=== PATIENT | female | born 1995 | race Asian ===

== ENCOUNTER → 2018-04-02 | Outpatient (CLI) | payer MEDICAID ==
--- NOTE | 2018-04-02 17:18 | Diagnostic Imaging Report ---
INDICATION: survey. TECHNIQUE: Multiple real-time grayscale images were obtained over the gravid uterus. COMPARISON: None. FINDINGS: There is a single live fetus in a breech presentation. heart rate was recorded at 136 beats per minute. Placenta is fundal. Amniotic fluid volume appears normal. Cervical length is 3.7 cm. survey does show kidneys, bladder and stomach to be unremarkable. The brain is unremarkable. There is a four-chamber heart. There is a three-vessel cord with normal cord insertion. spine was not well evaluated due to position. Biometrical measurements are as follows: Biparietal 5.4 cm, age 22 weeks 3 days. Head circumference 19.1 cm, age 21 weeks 3 days. Abdominal circumference 16.46 cm, age 21 weeks 4 days. Femur length 3.4 cm, age 20 weeks 5 days. Sonographic estimate age: 21 weeks 4 days. Sonographic estimated date of delivery: 08/09/2018. Estimated Weight: 407 gm (+/- 59 gm). LMP percentile: 79%. heart rate: 136 beats per minute. number: 1 of 1. IMPRESSION: 1. Single live IUP 21 weeks 4 days gestational age. Estimated date of confinement sonographically is 08/09/2018. 2. survey is unremarkable although spine was not well visualized due to position and followup ultrasound could be performed. Dictated by: Dictated on workstation # [id number]
== END ==
LOC: RAD 16:12
PROVIDERS: ATTEND Obstetrics & Gynecology
DX: Z36.89 Encounter for other specified antenatal screening (principal); Z3A.21 21 weeks gestation of pregnancy
CPT/HCPCS: 76805

== ENCOUNTER 2021-01-20 15:12 | Day surgery (SDC) | payer BC, MEDICAID ==
[~2021-01-20] VITALS: Ht 167 cm; Wt 72.0 kg
[2021-01-20] VITALS (8 sets, daily range): BP systolic 111–126; BP diastolic 68–82
[2021-01-20] MEDS ORDERED: fentaNYL INJ 100 MCG/2 ML AMP IVP ONE (15:30)
[2021-01-20 15:57] LABS: BASOPHILS % (AUTO) 0 % (0-10); EOSINOPHILS % (AUTO) 0 % (0-10); HEMATOCRIT 33 % (35-52); HEMOGLOBIN 10.7 g/dL (11.5-16.0); LYMPHOCYTES # (AUTO) 2.7 10^3/uL (1.0-4.0); LYMPHOCYTES % (AUTO) 22 % (12-44); MEAN CORPUSCULAR HEMOGLOBIN 29 pg (25-34); MEAN CORPUSCULAR HGB CONC 33 g/dL (32-36); MEAN CORPUSCULAR VOLUME 87 fL (80-99); MONOCYTES # (AUTO) 0.5 10^3/uL (0.0-1.0); MONOCYTES % (AUTO) 4 % (0-12); NEUTROPHILS % (AUTO) 73 % (42-75); PLATELET COUNT 236 10^3/uL (130-400); WHITE BLOOD COUNT 12.3 10^3/uL (4.3-11.0)
--- NOTE | 2021-01-20 16:11 | ED GU-Female ---
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 She reports that she had a miscarriage about 1 month ago when she was at 14 to 15 weeks gestation at that time. She does not remember passing any tissue. She was out of town when that happened. She has not yet followed up with Dr. Taveras. She has not had any troubles until today when she felt the urge to urinate. She went to the bathroom and passed a large amount of clot vaginally. She has subsequently developed quite a bit of lower abdominal cramping. No fevers or chills. Ab1. Timing/Duration: constant Severity/Quality: cramping Location: suprapubic Radiation: none Activities at Onset: none Prior Genitourinary Problems: none Associated Symptoms: dysuria (JASWANT MACIAS APRN) Allergies and Home Medications Allergies Coded Allergies: No Known Drug Allergies (Unverified , 01/20/21) Patient Home Medication List Home Medication List Reviewed: Yes (JASWANT MACIAS APRN) Review of Systems Review of Systems Constitutional: see HPI EENTM: see HPI Respiratory: no symptoms reported Cardiovascular: no symptoms reported Genitourinary: no symptoms reported Musculoskeletal: no symptoms reported Skin: no symptoms reported Psychiatric/Neurological: No Symptoms Reported Endocrine: No Symptoms Reported (JASWANT MACIAS APRN) Past Aanzbhi-Rreqkr-Yadyrz Hx Patient Social History Alcohol Use: Denies Use Smoking Status: Light Tobacco Smoker (JASWANT MACIAS APRN) Physical Exam Vital Signs Vital Signs - First Documented 01/20/21 01/20/21 15:20 17:50 Temp 36.4 Pulse 87 Resp 16 B/P (MAP) 103/82 (89) Pulse Ox 100 O2 Delivery Room Air (CASEY GOLD MD) Vital Signs Capillary Refill : (JASWANT MACIAS APRN) Height, Weight, BMI Height: '" Weight: lbs. oz. kg; BMI Method: General Appearance: WD/WN, no apparent distress, other (Alert. Oriented. Pleasant. Hemodynamically stable with a blood pressure of 103/82. Heart rate in the 70s.) Neck: non-tender, full range of motion Gastrointestinal: normal bowel sounds, non tender, soft Genital/Rectal: other (Pelvic exam done with Brianna at the bedside. There is quite a bit of clotted material within the vaginal vault.) Neurologic/Psychiatric: alert, normal mood/affect, oriented x 3 Skin: normal color, warm/dry (JASWANT MACIAS APRN) Progress/Results/Core Measures Suspected Sepsis SIRS Temperature: Pulse: Respiratory Rate: Laboratory Tests 01/20/21 15:43: White Blood Count 12.3H Blood Pressure / Mean: Laboratory Tests 01/20/21 15:43: Creatinine 0.71, Platelet Count 236 (JASWANT MACIAS APRN) Results/Orders Lab Results Laboratory Tests Test 01/20/21 15:43 Range/Units White Blood Count 12.3 H 4.3-11.0 10^3/uL Red Blood Count 3.76 L 3.80-5.11 10^6/uL Hemoglobin 10.7 L 11.5-16.0 g/dL Hematocrit 33 L 35-52 % Mean Corpuscular Volume 87 80-99 fL Mean Corpuscular Hemoglobin 29 25-34 pg Mean Corpuscular Hemoglobin Concent 33 32-36 g/dL Red Cell Distribution Width 12.2 10.0-14.5 % Platelet Count 236 130-400 10^3/uL Mean Platelet Volume 10.0 9.0-12.2 fL Immature Granulocyte % (Auto) 0 % Neutrophils (%) (Auto) 73 42-75 % Lymphocytes (%) (Auto) 22 12-44 % Monocytes (%) (Auto) 4 0-12 % Eosinophils (%) (Auto) 0 0-10 % Basophils (%) (Auto) 0 0-10 % Neutrophils # (Auto) 9.0 H 1.8-7.8 10^3/uL Lymphocytes # (Auto) 2.7 1.0-4.0 10^3/uL Monocytes # (Auto) 0.5 0.0-1.0 10^3/uL Eosinophils # (Auto) 0.0 0.0-0.3 10^3/uL Basophils # (Auto) 0.0 0.0-0.1 10^3/uL Immature Granulocyte # (Auto) 0.0 0.0-0.1 10^3/uL Sodium Level 138 135-145 MMOL/L Potassium Level 3.6 3.6-5.0 MMOL/L Chloride Level 106 98-107 MMOL/L Carbon Dioxide Level 26 21-32 MMOL/L Anion Gap 6 5-14 MMOL/L Blood Urea Nitrogen 12 7-18 MG/DL Creatinine 0.71 0.60-1.30 MG/DL Estimat Glomerular Filtration Rate > 60 BUN/Creatinine Ratio 17 Glucose Level 96 70-105 MG/DL Calcium Level 8.7 8.5-10.1 MG/DL Human Chorionic Gonadotropin, Quant 13 H <5 MIU/ML Serum Test, Qualitative POSITIVE NEGATIVE (CASEY GOLD MD) Medications Given in ED Current Medications Medications Dose Ordered Sig/Alexus Route Start Time Stop Time Status Last Admin Dose Admin Fentanyl Citrate 50 mcg ONCE ONCE IVP 01/20/21 15:30 01/20/21 15:31 DC 01/20/21 15:50 50 MCG (CASEY GOLD MD) Vital Signs/I&O 01/20/21 01/20/21 15:20 17:50 Temp 36.4 36.4 Pulse 87 77 Resp 16 16 B/P (MAP) 103/82 (89) 118/74 Pulse Ox 100 O2 Delivery Room Air Room Air (CASEY GOLD MD) Vital Signs/I&O Capillary Refill : (JASWANT MACIAS APRN) Departure Impression Primary Impression: Retained products of conception after miscarriage Disposition: ADMITTED INPATIENT Condition: Stable Departure-Patient Inst. Referrals: TAWANA TAVERAS DO (PCP/Family) Primary Care Physician JASWANT MACIAS APRN January 20, 2021 16:11 CASEY GOLD MD January 20, 2021 18:59
[2021-01-20 16:14] LABS: CHLORIDE 106 MMOL/L (98-107); POTASSIUM 3.6 MMOL/L (3.6-5.0); SODIUM 138 MMOL/L (135-145)
[2021-01-20 16:16] LABS: CALCIUM 8.7 MG/DL (8.5-10.1); GLUCOSE 96 MG/DL (70-105)
[2021-01-20 16:18] LABS: CARBON DIOXIDE 26 MMOL/L (21-32)
[2021-01-20 16:20] LABS: CREATININE SERUM 0.71 MG/DL (0.60-1.30); GFR ESTIMATED > 60
[2021-01-20 16:21] LABS: BUN/CREATININE RATIO 17
--- NOTE | 2021-01-20 17:17 | Diagnostic Imaging Report ---
PROCEDURE: Pelvic complete, transabdominal and transvaginal sonogram. Limited pelvic Doppler. TECHNIQUE: Multiple real-time grayscale images were obtained of the pelvis in various projections, transabdominally and transvaginally. Limited pelvic duplex images were obtained. HISTORY: Miscarriage one month previously, cramping and vaginal bleeding. COMPARISON: None available. FINDINGS: The uterus is enlarged measuring 7.4 x 5.5 x 5.3 cm. It is difficult to evaluate the endometrial canal as it is distended with fluid and debris with the debris within the canal measuring up to 2.3 cm. There is likely blood flow within the debris, but the tissue planes are distorted. The right ovary measures 3.6 x 2.3 x 2.5 cm and the left ovary measures 3.0 x 1.4 x 1.1 cm. There is normal arterial inflow to both ovaries. Small amount of free pelvic fluid is present. IMPRESSION: Endometrial canal is distorted as it is distended by fluid and debris, some of which appears to contain internal blood flow concerning for retained products of conception. The overall thickness is 2.3 cm. Dictated by: Dictated on workstation # [id number]
[2021-01-20] MEDS ORDERED: NS IV 1000 ML 1,000 ML IV SCH (18:15)
[2021-01-20] MEDS ORDERED: ONDANSETRON 4 MG/2 ML (SDV) Z0FRAN IVP PRN ×2 (18:15→19:15)
[2021-01-20] MEDS ORDERED: fentaNYL INJ 100 MCG/2 ML AMP IVP PRN (18:15)
[2021-01-20] MEDS ORDERED: NS IV 1000 ML 1,000 ML ONE (18:16)
--- NOTE | 2021-01-20 19:04 | History & Physical-Surgical ---
HPO-Surgical History of Present Illness Chief Complaint: PT BROUGHT IN VIA [facility] BLS. PT WAS AT HER PLACE OF EMPLOYMENT WHEN SHE WENT TO THE BATHROOM TO URINATE. PT THEN NOTICED A LOT OF BLEEDING IN THE TOILET. PT DOES REPORT HAVING A MISCARRIAGE ABOUT A MONTH AGO. Diagnosis/Surgical Indication: Incomplete Ab Procedure: Suction D and C Date of Surgery: January 20, 2021 Allergies and Home Medications Allergies Coded Allergies: No Known Drug Allergies (Unverified , 01/20/21) Patient Home Medication List Home Medication List Reviewed: Yes Past Aslpxse-Cpmvaz-Nwrhaq Hx Patient Social History Marrital Status: single Number of Children: 1 Number of living children: 1 Employed/Student: employed Smoking Status: Light Tobacco Smoker Surgeries No Respiratory No Currently Using CPAP: No Currently Using BIPAP: No Cardiovascular No Neurological No Reproductive System : Yes Hx : 2 Hx Para: 1 Hx Total # of Abortions (Spona: 1 Hx Reproductive Disorders: No Sexually Transmitted Disease: No HIV/AIDS: No Female Reproductive Disorders: Denies Genitourinary No Gastrointestinal No Musculoskeletal No Endocrine History of Endocrine Disorders: No Are Your Blood Sugars Over 250: No HEENT History of HEENT Disorders: No Cancer No Did You Recieve Any Treatments: No Psychosocial History of Psychiatric Problem: No Integumentary History of Skin or Integumenta: No Blood Transfusions History of Blood Disorders: No Adverse Reaction to a Blood Tr: No Reviewed Nursing Assessment Reviewed/Agree w Nursing PMH: No Family Medical History Significant Family History: No Pertinent Family Hx Exam Vital Signs Vital Signs 01/20/21 17:50 Temp 36.4 Pulse 77 Resp 16 B/P (MAP) 118/74 Pulse Ox 100 O2 Delivery Room Air Capillary Refill : Less Than 3 Seconds Labs Laboratory Tests Test 01/20/21 15:43 Range/Units White Blood Count 12.3 H 4.3-11.0 10^3/uL Red Blood Count 3.76 L 3.80-5.11 10^6/uL Hemoglobin 10.7 L 11.5-16.0 g/dL Hematocrit 33 L 35-52 % Mean Corpuscular Volume 87 80-99 fL Mean Corpuscular Hemoglobin 29 25-34 pg Mean Corpuscular Hemoglobin Concent 33 32-36 g/dL Red Cell Distribution Width 12.2 10.0-14.5 % Platelet Count 236 130-400 10^3/uL Mean Platelet Volume 10.0 9.0-12.2 fL Immature Granulocyte % (Auto) 0 % Neutrophils (%) (Auto) 73 42-75 % Lymphocytes (%) (Auto) 22 12-44 % Monocytes (%) (Auto) 4 0-12 % Eosinophils (%) (Auto) 0 0-10 % Basophils (%) (Auto) 0 0-10 % Neutrophils # (Auto) 9.0 H 1.8-7.8 10^3/uL Lymphocytes # (Auto) 2.7 1.0-4.0 10^3/uL Monocytes # (Auto) 0.5 0.0-1.0 10^3/uL Eosinophils # (Auto) 0.0 0.0-0.3 10^3/uL Basophils # (Auto) 0.0 0.0-0.1 10^3/uL Immature Granulocyte # (Auto) 0.0 0.0-0.1 10^3/uL Sodium Level 138 135-145 MMOL/L Potassium Level 3.6 3.6-5.0 MMOL/L Chloride Level 106 98-107 MMOL/L Carbon Dioxide Level 26 21-32 MMOL/L Anion Gap 6 5-14 MMOL/L Blood Urea Nitrogen 12 7-18 MG/DL Creatinine 0.71 0.60-1.30 MG/DL Estimat Glomerular Filtration Rate > 60 BUN/Creatinine Ratio 17 Glucose Level 96 70-105 MG/DL Calcium Level 8.7 8.5-10.1 MG/DL Human Chorionic Gonadotropin, Quant 13 H <5 MIU/ML Serum Test, Qualitative POSITIVE NEGATIVE US consistent with retained products of conception General Appearance: Alert, Oriented X3 HEENT: Atraumatic Respiratory: Clear to Auscultation Cardiovascular: Regular Rate Abdominal: Normal Bowel Sounds Extremities: No Clubbing Psych/Mental Status: Mental Status NL Assessment/Plan Assessment and Plan 25 yo Incomplete Vaginal bleeding Plan: Suction D and C. Admission Diagnosis 25 yo Incomplete Vaginal bleeding Admission Status: TAWANA South DO January 20, 2021 19:04
[2021-01-20] MEDS ORDERED: ACHD5005 PO (19:06)
[2021-01-20] MEDS ORDERED: IBUP-1773 PO (19:06)
--- NOTE | 2021-01-20 19:06 | Discharge Inst-Women's Service ---
Discharge Inst-Women's Serv Depart Medication/Instructions New, Converted or Re-Newed RX: RX on Chart Problems Reviewed?: Yes Consults/Follow Up Additional Follow Up: Yes Orders/Referrals Dr. Taveras in 2-3 weeks Activity Activity: Activity as Tolerated Driving Instructions: You May Drive NO SMOKING: NO SMOKING Nothing Inside Vagina: No Douching, No [place], No Tampons Diet Discharge Diet: No Restrictions Symptoms to Report to : Bleeding Excessive, Pain Increased, Fever Over 101 Degrees F, Vaginal Bleeding Increase, Questions/Concerns For Any Problems or Questions: Contact Your Physician TAWANA TAVERAS DO January 20, 2021 19:06
[2021-01-20] MEDS ORDERED: proPOfol 200 MG/20 ML (DIPRIVAN) VIAL IV ONE (19:08)
[2021-01-20] MEDS ORDERED: LIDOCAINE PF 2% 5 ML (XYLOCAINE) VIAL ONE (19:08)
[2021-01-20] MEDS ORDERED: fentaNYL INJ 100 MCG/2 ML AMP ONE (19:08)
[2021-01-20] MEDS ORDERED: MIDAZOLAM 2 MG/2 ML (VERSED) VIAL ONE (19:08)
[2021-01-20] MEDS ORDERED: SEVOFLURANE (ULTANE) 15 ML INHAL SOLN ONE (19:08)
[2021-01-20] MEDS ORDERED: ONDANSETRON 4 MG/2 ML (SDV) Z0FRAN ONE (19:11)
[2021-01-20] MEDS ORDERED: HYDROcodone/APAP 5 MG/325 MG (LORTAB) TAB PO PRN ×2 (19:15)
[2021-01-20] MEDS ORDERED: KETOROLAC 30 MG/ML VIAL IVP ONE (19:15)
[2021-01-20] MEDS ORDERED: D5 LR IV SOLUTION 1,000 ML IV SCH (19:15)
[2021-01-20] MEDS ORDERED: DOXYCYCLINE INJECTION 100 MG in NS (IVPB) 100 ML IV ONE (19:15)
[2021-01-20] MEDS ORDERED: LACTATED RINGERS 1,000 ML IV PRN (19:45)
[2021-01-20] MEDS ORDERED: KETOROLAC 30 MG/ML VIAL ONE (19:54)
[2021-01-20] MEDS ORDERED: HYDROmorphone 2 MG/ML VIAL (DILAUDID) IV ONE (20:15)
--- NOTE | 2021-01-21 00:02 | OPERATIVE REPORT ---
DATE OF SERVICE: PREOPERATIVE DIAGNOSES: A 25-year-old G2, P1 with incomplete and retained products of conception. POSTOPERATIVE DIAGNOSES: A 25-year-old G2, P1 with incomplete and retained products of conception. PROCEDURE: Suction D and C. SURGEON: Tawana Taveras DO ANESTHESIA: LMA general. ESTIMATED BLOOD LOSS: 75 mL. URINE OUTPUT: 50 mL clear at the start of the procedure. FLUIDS: 800 mL lactated Ringer's solution. FINDINGS: A small to moderate amount of products of conception consistent with retained products of incomplete . INDICATIONS FOR PROCEDURE: This patient came in the Emergency Department with heavy vaginal bleeding. She reported started a few days ago and became progressively worse. She miscarried about a month and a half ago and was seen at a facility in [place], who told her that she had passed all the products of conception. Therefore, the patient did not follow up with me here in my office. This evening, her hemodynamic status was stable; however, due to the patient's n.p.o. status, we decided to proceed with a suction D and C. Risks of the procedure were discussed with the patient in detail and after all of her questions were answered, consent was obtained, the patient was taken to the operating room. OPERATIVE REPORT IN DETAIL: Once in the operating room, anesthesia was found to be adequate. She was placed in dorsal lithotomy position, prepped and draped in normal sterile fashion. Timeout was performed. Bladder was drained using straight catheterization. A weighted speculum inserted to the patient's vagina. Right angle retractor was used to visualize the cervix. It was grasped at 12 o'clock position using a long Allis clamp. I then gently sound the uterine cavity and was found to be 8 cm. I selected an 8 cm [place] suction curette and gently dilated the cervix for the placement of this using Hanks dilators. I then placed the suction curette into the endometrial cavity. I applied [place] suction to a maximum suction of 70 mmHg, which point I methodically cleared the endometrial cavity using suction of the products of conception. A small to moderate amount of products of conception are retrieved in doing so. After which there was little to scant bleeding noted. A gentle curettage with a sharp endometrial curette was performed, after which there was no active bleeding noted. I removed all the instruments from the patient's vagina. The patient tolerated the procedure well and was taken to recovery area in stable condition. Lap and sponge count was correct at the end of the procedure. Instrument counts correct as well. Job ID: [id number] DocumentID: [id number] Dictated Date: 01/20/2021 20:14:03 Agricultural Technical Officer Date: 01/21/2021 00:01:03 Dictated By: TAWANA TAVERAS DO
--- NOTE | 2021-01-21 09:54 | Anesthesia-General Post-Op ---
General Patient Condition Mental Status/LOC: Same as Preop Cardiovascular: Satisfactory Nausea/Vomiting: Absent Respiratory: Satisfactory Pain: Controlled Complications: Absent Post Op Complications Complications None Follow Up Care/Instructions Patient Instructions None needed. Anesthesia/Patient Condition Patient Condition Patient is doing well, no complaints, stable vital signs, no apparent adverse anesthesia problems. No complications reported per nursing. D/C home per [facility] Criteria: Yes ONDINA PRAJAPATI CRNA January 21, 2021 09:54
== END 2021-01-20 22:15 | disposition home or self-care (01) ==
LOC: EDUNIT# 15:12 → ER 15:17 → UNDOADMOB 17:23 → WSo 17:23 → WS 17:23 → WSo 22:15 → UNDODISOB 22:15
PROVIDERS: ATTEND Obstetrics & Gynecology
DX: O03.4 Incomplete spontaneous abortion without complication (principal); F17.200 Nicotine dependence, unspecified, uncomplicated; Z98.890 Other specified postprocedural states
CPT/HCPCS: 36415; 76830; 76856; 80048; 84702; 84703; 85025; 86850; 86900; 86901; 86920; 96374